=== PATIENT | male | born 1965 | race Caucasian/White ===

== ENCOUNTER → 2017-01-26 | Day surgery (SDC) | payer OTHER ==
[~2017-01-26] VITALS: Ht 193 cm; Wt 136.1 kg
[~2017-01-26] MED LIST: 0.9% Sodium Chloride 1,000 ML IV SCH; AMLO10TA3 PO; LOSA100T29 PO; MELO7.5O PO; METO-369 PO; MIRT15TA6 PO; NORT25CA PO; SIMV20TA4 PO; Sodium Chloride LOK Flush 10 mL Syringe IV PRN; fentaNYL-PF 50 mCg/mL 2 mL Inj IVPUSH PRN
[2017-01-26 09:11] VITALS: BP 128/82; PULSE 59; RESP 16; O2SAT 93
--- NOTE | 2017-01-26 10:11 | PCM.ENDCOL ---
Colonoscopy Date of Service: Jan 26, 2017 Physician Pastor Guzmán MD Pre Procedure Diagnosis: Screening FIT test positive Post Procedure Dx & Findings: Polyp hemorrhoids Procedure Colonoscopy PROCEDURE IN DETAIL: Prep adequate Withdrawal time 8 minutes After unremarkable rectal examination the Olympus video colonoscope was inserted patient's anal canal and was advanced to cecum. Landmarks were identified including the ileocecal valve and appendiceal orifice. Scope was withdrawn systematically. Visualized colonic mucosa showed healthy shiny mucosa with normal healthy-appearing vasculature. In the transverse colon there was a 1 mm polyp which is removed completely using cold forceps. In the rectum retroflexion was done which showed hemorrhoids. Anal canal was inspected carefully on the way out and hemorrhoids noted. Impression Polyp 1 status post complete removal Hemorrhoids Recommendation Repeat colonoscopy in 5 years Presedation Assessment Risks and Benefits Informed consent was obtained from the patient after all risks and benefits including but not limited to drug reaction, infection, pain, bleeding, perforation, as well as alternatives were discussed. Patient monitoring Continuous pulse oximetry, cardiac monitoring, blood pressure monitoring, IV access, and oxygen at 2L per nasal cannula. Periprocedural Fentanyl: Fentanyl 150mcg Incrementally Midazolam: Midazolam 8mg Incrementally Complications There were no periprocedural complications identified. Post Procedure Plan Post Procedure Recommendations 1. Restrict activities today. 2. Resume normal activities in the morning. 3. Resume medications. 4. Patient informed of normal post procedure side effects as bloating, drowsiness, blood streaking in the stool. 5. average risk CRCS. If colon polyps come back as: -Hyperplastic- can repeat colonoscopy in 10 years -Tubular adenoma- repeat colonoscopy in 5 years -Tubulovillous/villous adenoma- repeat colonoscopy in 3 years -If any dysplasia- return to clinic as soon as possible 6. Please don't hesitate to call me with any questions. Pastor Guzmán MD Jan 26, 2017 10:11
[2017-01-26 10:13] VITALS: BP 125/84; PULSE 66; RESP 16; O2SAT 95
[2017-01-26 10:24] VITALS: BP 117/72; PULSE 60; RESP 16; O2SAT 95
--- NOTE | 2017-02-01 07:53 | PATH ---
SURGICAL PATHOLOGY Attending Physician:Pastor Guzmán M.D. CASE STATUS: Signed Out PATIENT NAME: ANNA MARIE COSTELLO PID: [id number] : 1965 DATE COLLECTED:01/26/2017 00:00 SPECIMEN: Colon, Polyp CLINICAL HISTORY: 1). TRANSVERSE POLYP X 1 FINAL DIAGNOSIS: Transverse Colon, Polyp, Biopsy: Portion of tubular adenoma x3; negative for high-grade dysplasia. ICD10: K63.5 GROSS DESCRIPTION: The specimen is received in one formalin filled container labeled with the patient's name, sublabeled "trans" and consists of 3 portions of tissue which aggregate to 0.2 x 0.2 x 0.2 CM. The specimen is entirely submitted in one cassette. 01/27/2017[place] ICD-9 CODES: CPT CODES: 1: 36964 Electronically Signed Out Faith Goddard MD [facility] Pathology [facility] [address], [place] [address] Technical component performed at [facility], [address] [place] [address] Ave[address], [place], [address]
== END | disposition home or self-care (01) ==
LOC: END 00:40
PROVIDERS: ATTEND Internal Medicine
DX: Z12.11 Encounter for screening for malignant neoplasm of colon (principal); D12.3 Benign neoplasm of transverse colon; K64.9 Unspecified hemorrhoids; R19.5 Other fecal abnormalities; K59.00 Constipation, unspecified; I10 Essential (primary) hypertension; E78.5 Hyperlipidemia, unspecified; F32.9 Major depressive disorder, single episode, unspecified
CPT/HCPCS: 45380; 99152; 99153; J2250; J3010; J7030